=== PATIENT | male | born 1950 | race African-American/Black ===

== ENCOUNTER 2016-08-12 12:00 | Inpatient (IN) | payer OTHER ==
[2016-08-12 12:18] VITALS: BMI 27.1
--- NOTE | 2016-08-12 12:58 | HP ---
COWS - Scale Resting Pulse: 1= MD 81-100 Sweatin= No chills or Flushing Restless Observation: 1= Difficult to Sit Still Pupil Size: 0= Normal to Room Light Bone or Joint Aches: 1= Mild Discomfort Runny Nose/ Eye Tearin= Nasal Congestion GI Upset > 30mins: 1= Stomach Cramp Tremor Observation: 1= Tremor [place], Not Seen Yawning Observation: 1= 1-2x During Session Anxiety or Irritability: 1=Feels Anxious/Irritable Goose Flesh Skin: 0=Smooth Skin COWS Score: 8 Admission ROS S - HPI Chief Complaint: I want to detox, I have to stop Allergies/Adverse Reactions: Allergies Allergy/AdvReac Type Severity Reaction Status Date / Time fish derived Allergy Severe Swelling Verified 08/12/16 13:16 Iodinated Contrast Media - Allergy Severe Difficulty Verified 08/12/16 13:16 Oral and Breathing [Iodinated Contrast Media - IV Dye] penicillin G Allergy Severe Hives Verified 08/12/16 13:16 contrast dye Allergy Severe Difficulty Uncoded 08/12/16 13:16 Breathing History of Present Illness: 66 yo gentleman here for detox from opiates, previously detoxed her february 2016 - went on suboxone but due to emphysema had a difficult time getting there daily and stopped in May 2016. For same reason unable to continue with methadone program - difficulty getting there daily. No seizures. Exam Limitations: Clinical Condition - Ebola screening Have you traveled outside of the country in the last 21 days: No Have you had contact with anyone from an Ebola affected area: No Have you been sick,other than usual withdrawal symptoms: No Do you have a fever: No - Review of Systems Constitutional: Loss of Appetite, Changes in sleep, Unexplained wgt Loss Respiratory: reports: SOB with Exertion Cardiac: reports: No Symptoms Reported GI: reports: Nausea, Poor Appetite : reports: Dysuria Musculoskeletal: reports: No Symptoms Reported Integumentary: reports: No Symptoms Reported Neuro: reports: No Symptoms reported Endocrine: reports: No Symptoms Reported Hematology: reports: No Symptoms Reported Psychiatric: reports: Judgement Intact, Mood/Affect Appropiate, Orientated x3 Other Systems: Reviewed and Negative Patient History - Patient Medical History Hx Anemia: No Hx Asthma: No Hx Chronic Obstructive Pulmonary Disease (COPD): Yes Hx Cancer: No Hx Cardiac Disorders: No Hx Congestive Heart Failure: No Hx Hypertension: Yes (ON MEDS) Hx Hypercholesterolemia: No Hx Pacemaker: No HX Cerebrovascular Accident: No Hx Seizures: No Hx Diabetes: No Hx Gastrointestinal Disorders: No Hx Liver Disease: Yes (HEP B ) Hx Genitourinary Disorders: No Hx Sexually Transmitted Disorders: Yes (SYPHILIS years ago - treated) Hx Renal Disease (ESRD): Yes (HX KIDNEY STONES) Hx Thyroid Disease: No Hx Human Immunodeficiency Virus (HIV): No (LAST TESTED 03/2013;NEGATIVE HX) Hx Hepatitis C: No Hx Depression: Yes (NO CURRENT MEDICATION) Hx Suicide Attempt: No (DENIES) Hx Bipolar Disorder: No Hx Schizophrenia: No - Patient Surgical History Past Surgical History: Yes Hx Neurologic Surgery: No Hx Cataract Extraction: Yes (LEFT LENS TRANSPLANT IN 2011) Hx Cardiac Surgery: No Hx Lung Surgery: No Hx Breast Surgery: No Hx Breast Biopsy: No Hx Abdominal Surgery: No Hx Appendectomy: No Hx Cholecystectomy: No Hx Genitourinary Surgery: No Hx Section: No Hx Orthopedic Surgery: No Other Surgical History: lens implant, left eye in 2011 Anesthesia Reaction: No - PPD History Previous Implant?: Yes Documented Results: Positive w/o proof Results: CXR TO BE DONE PPD to be Administered?: No - Reproductive History Patient is a Female of Child Bearing Age (11 -55 yrs old): No (male) - Smoking Cessation Smoking history: Current every day smoker Have you smoked in the past 12 months: Yes Aproximately how many cigarettes per day: 5 Cigars Per Day: 0 Hx Chewing Tobacco Use: No Initiated information on smoking cessation: Yes 'Breaking Loose' booklet given: 08/12/16 (give on floor) - Substance & Tx. History Hx Alcohol Use: Yes Hx Substance Use: Yes Substance Use Type: Alcohol, Cocaine, Heroin, Opiates Hx Substance Use Treatment: Yes (detox, suboxone, methadone program) - Substances Abused Alcohol Route: Oral Frequency: Daily Amount used: 1/5 liquor Age of first use: 12 Date of Last Use: 08/12/16 Heroin Route: Injection Frequency: Daily Amount used: 3 bags Age of first use: 12 Date of Last Use: 08/12/16 Cocaine Route: Injection Frequency: 3-6 times per week Amount used: $20 Age of first use: 14 Date of Last Use: 08/08/16 Family Disease History - Family Disease History Family Disease History: Respiratory: Father (HTN;ASTHMA-), Other: Father , Mother (HTN-), Brother (, liver, etoh), Sister (, liver, etoh) Admission Physical Exam [facility] - Vital Signs Vital Signs: Vital Signs - 24 hr 08/12/16 12:11 Temperature 98.6 F Pulse Rate 112 H Respiratory 20 Rate Blood Pressure 136/91 - Physical General Appearance: Yes: Nourished, Appropriately Dressed, Mild Distress, Moderate Distress, Anxious HEENTM: Yes: Hearing grossly Normal, Normocephalic, Normal Voice, Pharynx Normal , Other (left eye wanders) Respiratory: Yes: Rhonchi, Other (dyspnea on exertion) Neck: Yes: No masses,lesions,Nodules, Supple Breast: Yes: Breast Exam Deferred Cardiology: Yes: Regular Rhythm, Regular Rate Abdominal: Yes: Soft Genitourinary: Yes: Within Normal Limits Back: Yes: Normal Inspection Musculoskeletal: Yes: full range of Motion, Gait Steady Extremities: Yes: Normal Inspection, Normal Range of Motion Neurological: Yes: Fully Oriented, Alert, Normal Mood/Affect, Normal Response Integumentary: Yes: Normal Color, Warm Lymphatic: Yes: Within Normal Limits - Diagnostic (1) Alcohol dependence with uncomplicated withdrawal Current Visit: Yes Status: Chronic (2) Emphysema Current Visit: Yes Status: Chronic (3) Glaucoma, left eye Current Visit: Yes Status: Chronic Qualifiers: Glaucoma type: unspecified type Qualified Code(s): H40.9 - Unspecified glaucoma (4) HTN (hypertension) Current Visit: Yes Status: Chronic Qualifiers: Hypertension type: essential hypertension Qualified Code(s): I10 - Essential (primary) hypertension (5) Hepatitis C Current Visit: Yes Status: Chronic Qualifiers: Viral hepatitis chronicity: carrier Qualified Code(s): B18.2 - Chronic viral hepatitis C (6) Opioid dependence with withdrawal Current Visit: Yes Status: Chronic (7) Strabismic amblyopia of left eye Current Visit: Yes Status: Chronic Cleared for Admission [facility] - Detox or Rehab [facility] Level of Care: Medically Managed Detox Regimen/Protocol: Methadone/Librium S Breath Alcohol Content Breath Alcohol Content: 0 Urine Drug Screen - Results Drug Screen Negative: No Urine Drug Screen Results: NATALIA-Cocaine, OPI-Opiates, OXY-Oxycodone
[2016-08-12] MEDS ORDERED: LOPERAMIDE HCL 2 MG CAPSULE PO PRN (13:09)
[2016-08-12] MEDS ORDERED: P-EPHED 60MG/TRIPROLIDI 2.5MG TABLET PO PRN (13:09)
[2016-08-12] MEDS ORDERED: ACETAMINOPHEN 325 MG TABLET (FP) PO PRN (13:09)
[2016-08-12] MEDS ORDERED: hydrOXYzine PAMOATE 25 MG CAPSULE (FP) PO PRN (13:09)
[2016-08-12] MEDS ORDERED: MAG HYDROX/AL HYDROX/SIMETH 30 ML UNIT-DOSE CUP PO PRN (13:09)
[2016-08-12] MEDS ORDERED: chlordiazePOXIDE HCL 25 MG CAPSULE PO PRN (13:09)
[2016-08-12] MEDS ORDERED: METHADONE HCL 10 MG TABLET (FOR DETOX USE ONLY) PO ONE ×2 (13:09→23:00)
[2016-08-12] MEDS ORDERED: MENTHOL/PHENOL 1 EACH UD MM PRN (13:09)
[2016-08-12] MEDS ORDERED: guaiFENesin/D-METHORPHAN HB 10 ML UNIT-DOSE CUPS PO PRN (13:09)
[2016-08-12] MEDS ORDERED: MAGNESIUM HYDROX 2400MG/30ML ORAL SUSPENSION 30 ML CUP PO PRN (13:09)
[2016-08-12] MEDS ORDERED: MAGNESIUM CITRATE 300 ML BOTTLE PO PRN (13:09)
[2016-08-12] MEDS: ALBUTEROL SO4 2.5/IPRATROPIUM 0.5 INH SOL 3 ML VIAL.NEB. NEB PRN (14:53)
[2016-08-12] MEDS ORDERED: chlordiazePOXIDE HCL 25 MG CAPSULE PO ONE (15:00)
[2016-08-12] MEDS: NICOTINE 14 MG/24 HOURS TOPICAL PATCH TD SCH (15:34)
[2016-08-12] MEDS: chlordiazePOXIDE HCL 25 MG CAPSULE PO SCH ×2 (17:39→22:02)
[2016-08-12 18:34] LABS: URINE APPEARANCE CLEAR; URINE BILIRUBIN NEGATIVE (NEGATIVE); URINE BLOOD NEGATIVE (NEGATIVE); URINE COLOR YELLOW; URINE GLUCOSE (UA) NEGATIVE (NEGATIVE); URINE KETONE NEGATIVE (NEGATIVE); URINE LEUK ESTERASE NEGATIVE (NEGATIVE); URINE NITRITE NEGATIVE (NEGATIVE); URINE PROTEIN NEGATIVE (NEGATIVE); URINE UROBILINOGEN NEGATIVE E.U./dl (0.2-1.0)
[2016-08-12] MEDS ORDERED: ATORVASTATIN CA 40 MG TABLET (FP) ONE (20:38)
[2016-08-12] MEDS: THIAMINE HCL 100 MG TABLET (FP) PO SCH (22:01)
[2016-08-12] MEDS: ACLIDINIUM BROMIDE 400 MCG/INH AERO.POWD IH SCH (22:03)
[2016-08-12] MEDS: BUDESONIDE/FORMETEROL FUMARATE 160/4.5 mcg INHALER IH SCH (22:03)
[2016-08-12] MEDS: ATORVASTATIN CA 80 MG TABLET (FP) PO SCH (22:03)
[2016-08-12] MEDS: BRIMONIDINE TARTRATE 0.2% OPHTHALMIC 5 ML BOTTLE OS SCH (22:05)
[2016-08-12] MEDS: ALBUTEROL SO4 6.7 GM HFA INHALER IH PRN (22:06)
[2016-08-13] MEDS: chlordiazePOXIDE HCL 25 MG CAPSULE PO SCH ×4 (05:49→22:35)
[2016-08-13] MEDS: ALBUTEROL SO4 6.7 GM HFA INHALER IH PRN ×2 (08:16→19:22)
[2016-08-13 09:18] LABS: MCH 29.2 pg (25.7-33.7); MCHC 31.8 g/dl (32.0-35.9); MEAN CELL VOLUME 91.8 fl (80-96); MEAN PLT VOLUME 9.3 fl (7.5-11.1); PLATELET COUNT 170 K/MM3 (134-434); RDW 14.6 % (11.9-15.9); WHITE BLOOD COUNT 3.9 K/mm3 (4.0-10.0)
[2016-08-13 09:30] LABS: ALBUMIN 3.1 g/dl (3.4-5.0); ANION GAP 8 (8-16); CALCIUM 8.1 mg/dL (8.5-10.1); CO2 27 mmol/L (21-32); GLUCOSE,RANDOM 86 mg/dL (74-106)
[2016-08-13 09:33] LABS: ALK PHOS 86 U/L (45-117); BILIRUBIN,TOTAL 0.4 mg/dL (0.2-1.0); COCKROFT - GAULT 85.84; CREATININE 0.9 mg/dL (0.7-1.3); SGOT/AST 34 U/L (15-37); SGPT/ALT 38 U/L (12-78); TOT PROT 6.7 g/dl (6.4-8.2)
[2016-08-13] MEDS ORDERED: METHADONE HCL 10 MG TABLET (FOR DETOX USE ONLY) PO SCH (10:00)
[2016-08-13] MEDS: BUDESONIDE/FORMETEROL FUMARATE 160/4.5 mcg INHALER IH SCH ×2 (10:17→22:35)
[2016-08-13] MEDS: BRIMONIDINE TARTRATE 0.2% OPHTHALMIC 5 ML BOTTLE OS SCH ×2 (10:18→22:37)
[2016-08-13] MEDS: ACLIDINIUM BROMIDE 400 MCG/INH AERO.POWD IH SCH ×2 (10:18→22:35)
[2016-08-13] MEDS: PRENATAL VITAMINS W/ FOLIC ACID TABLET (FP) PO SCH (10:19)
[2016-08-13] MEDS: amLODIPine BESYLATE 10 MG TABLET (FP) PO SCH (10:19)
[2016-08-13] MEDS: NICOTINE 14 MG/24 HOURS TOPICAL PATCH TD SCH (10:19)
[2016-08-13] MEDS: ASPIRIN 81 MG CHEWABLE TABLETS PO SCH (10:19)
--- NOTE | 2016-08-13 14:04 | PN ---
S CIWA - CIWA Score Nausea/Vomitin-No Nausea/No Vomiting Muscle Tremors: 4-Moderate,w/Arms Extend Anxiety: 4-Mod. Anxious/Guarded Agitation: 3 Paroxysmal Sweats: 3 Orientation: 0-Oriented Tacttile Disturbances: 1-Very Mild Itch/Numbness Auditory Disturbances: 0-None Visual Disturbances: 0-None Headache: 0-None Present CIWA-Ar Total Score: 15 [facility] Progress Note (SOAP) Subjective: Anxiety,tremors,sweating,interrupted sleep,restless. Objective: 08/13/16 14:02 Vital Signs - 8 hr 08/13/16 08/13/16 08/13/16 06:35 07:00 09:46 Temperature 97.7 F 97.7 F Pulse Rate 86 83 90 Respiratory 18 20 Rate Blood Pressure 164/108 152/100 164/92 08/13/16 13:42 Temperature 97.3 F L Pulse Rate 96 H Respiratory 18 Rate Blood Pressure 159/101 Laboratory Tests 08/12/16 08/13/16 08/13/16 18:10 07:30 07:30 WBC 3.9 L RBC 4.98 Hgb 14.5 Hct 45.7 MCV 91.8 MCHC 31.8 L RDW 14.6 Plt Count 170 MPV 9.3 Sodium 142 Potassium 4.1 Chloride 107 Carbon Dioxide 27 Anion Gap 8 BUN 10 Creatinine 0.9 Creat Clearance w eGFR > 60 Random Glucose 86 Calcium 8.1 L Total Bilirubin 0.4 AST 34 D ALT 38 Alkaline Phosphatase 86 D Total Protein 6.7 Albumin 3.1 L D Urine Color Yellow Urine Appearance Clear Urine pH 5.0 Ur Specific [place] 1.019 Urine Protein Negative Urine Glucose (UA) Negative Urine Ketones Negative Urine Blood Negative Urine Nitrite Negative Urine Bilirubin Negative Urine Urobilinogen Negative Ur Leukocyte Esterase Negative RPR Titer 08/13/16 07:30 WBC RBC Hgb Hct MCV MCHC RDW Plt Count MPV Sodium Potassium Chloride Carbon Dioxide Anion Gap BUN Creatinine Creat Clearance w eGFR Random Glucose Calcium Total Bilirubin AST ALT Alkaline Phosphatase Total Protein Albumin Urine Color Urine Appearance Urine pH Ur Specific [place] Urine Protein Urine Glucose (UA) Urine Ketones Urine Blood Urine Nitrite Urine Bilirubin Urine Urobilinogen Ur Leukocyte Esterase RPR Titer Nonreactive labs noted Assessment: 08/13/16 14:03 Withdrawal sx. Plan: Continue detox
[2016-08-13 16:15] LABS: PLATELET COMMENT2 NO CLUMPING NOTED; PLATELET ESTIMATE ADEQUATE (NORMAL)
--- NOTE | 2016-08-13 17:18 | EKG ---
Test Reason : Blood Pressure : / mmHG Vent. Rate : 095 BPM Atrial Rate : 095 BPM P-R Int : 132 ms QRS Dur : 088 ms QT Int : 356 ms P-R-T Axes : 077 -17 026 degrees QTc Int : 447 ms NORMAL SINUS RHYTHM NORMAL ECG NO PREVIOUS ECGS AVAILABLE Confirmed by ELYSSA PEREZ MD ([id number]) on 08/13/2016 5:17:36 PM Referred By: Confirmed By:ELYSSA PEREZ MD
[2016-08-13] MEDS ORDERED: ATORVASTATIN CA 40 MG TABLET (FP) ONE (21:27)
[2016-08-13] MEDS: ATORVASTATIN CA 80 MG TABLET (FP) PO SCH (22:35)
[2016-08-13] MEDS: THIAMINE HCL 100 MG TABLET (FP) PO SCH (22:35)
[2016-08-13] MEDS: diphenhydrAMINE HCL 50 MG CAPSULE PO PRN (22:36)
[2016-08-14] MEDS: chlordiazePOXIDE HCL 25 MG CAPSULE PO SCH ×2 (05:57→10:53)
[2016-08-14] MEDS: ALBUTEROL SO4 2.5/IPRATROPIUM 0.5 INH SOL 3 ML VIAL.NEB. NEB PRN (09:25)
[2016-08-14] MEDS: ASPIRIN 81 MG CHEWABLE TABLETS PO SCH (10:51)
[2016-08-14] MEDS: BRIMONIDINE TARTRATE 0.2% OPHTHALMIC 5 ML BOTTLE OS SCH ×2 (10:51→22:32)
[2016-08-14] MEDS: BUDESONIDE/FORMETEROL FUMARATE 160/4.5 mcg INHALER IH SCH ×2 (10:51→22:31)
[2016-08-14] MEDS: PRENATAL VITAMINS W/ FOLIC ACID TABLET (FP) PO SCH (10:52)
[2016-08-14] MEDS: ACLIDINIUM BROMIDE 400 MCG/INH AERO.POWD IH SCH ×2 (10:52→22:32)
[2016-08-14] MEDS: amLODIPine BESYLATE 10 MG TABLET (FP) PO SCH (10:52)
[2016-08-14] MEDS: METHADONE HCL 5 MG TABLET (FOR DETOX USE ONLY) PO SCH (10:52)
[2016-08-14] MEDS: NICOTINE 14 MG/24 HOURS TOPICAL PATCH TD SCH (10:53)
--- NOTE | 2016-08-14 11:32 | CONSULT ---
[facility] Psychiatric Consult - Data Date of interview: 08/14/16 Admission source: [facility] Identifying data: This is 66 years old male with no psychiatric hospitalization history intoxicated with: Alcohol, Cocaine, Heroin and Nicotine Substance Abuse History: - Smoking Cessation. Smoking history: Current every day smoker. Have you smoked in the past 12 months: Yes. Aproximately how many cigarettes per day: 5. Cigars Per Day: 0. Hx Chewing Tobacco Use: No. Initiated information on smoking cessation: Yes. 'Breaking Loose' booklet given : 08/12/16 (give on floor). - Substance & Tx. History. Hx Alcohol Use: Yes. Hx Substance Use: Yes. Substance Use Type: Alcohol, Cocaine, Heroin, Opiates. Hx Substance Use Treatment: Yes (detox, suboxone, methadone program). - Substances Abused. Alcohol. Route: Oral. Frequency: Daily. Amount used: 1 /5 liquor. Age of first use: 12. Date of Last Use: 08/12/16. Heroin. Route: Injection. Frequency: Daily. Amount used: 3 bags. Age of first use: 12. Date of Last Use: 08/12/16. Cocaine. Route: Injection. Frequency: 3- 6 times per week. Amount used: $20. Age of first use: 14. Date of Last Use: 08/08/16 Medical History: Left eye blindness, Emphisema, HTN, Left eye glaucoma, Asthma history Psychiatric History: Patient reprots history of depression, as per computer there is a history of MDD, as per patient - no medications taking prior to admission, denies suicidal history Physical/Sexual Abuse/Trauma History: Denies Additional Comment: Obswervation. Detox Unit Care Protocol Mental Status Exam - Mental Status Exam Alert and Oriented to: Person Cognitive Function: Fair Patient Appearance: Unkempt Mood: Sad Affect: Mood Congruent Patient Behavior: Sedated Speech Pattern: Delayed Voice Loudness: Mildly Soft/Quiet Thought Process: Goal Oriented Thought Disorder: Being Controlled Hallucinations: Denies Suicidal Ideation: Denies Homicidal Ideation: Denies Insight/Judgement: Fair Sleep: Difficulty falling asleep Appetite: Fair Muscle strength/Tone: Mild Hypotonicity Gait/Station: Shuffling Additional Comments: Obswervation. Detox Unit Care Protocol Psychiatric Findings - Problem List ([place] 1, 2,3) (1) Alcohol dependence with uncomplicated withdrawal Current Visit: Yes Status: Chronic (2) Opioid dependence with withdrawal Current Visit: Yes Status: Chronic (3) Depressive disorder Current Visit: No Status: Chronic (4) Drug-induced mood disorder Current Visit: No Status: Chronic (5) Nicotine dependence Current Visit: No Status: Chronic Qualifiers: Nicotine product type: cigarettes Substance use status: uncomplicated Qualified Code(s): F17.210 - Nicotine dependence, cigarettes, uncomplicated (6) Opioid dependence Current Visit: No Status: Chronic (7) MDD (major depressive disorder) Current Visit: Yes Status: Acute - Initial Treatment Plan Initial Treatment Plan: Obswervation. Detox Unit Care Protocol
--- NOTE | 2016-08-14 13:37 | PN ---
[facility] CIWA - CIWA Score Nausea/Vomitin-No Nausea/No Vomiting Muscle Tremors: 4-Moderate,w/Arms Extend Anxiety: 3 Agitation: 3 Paroxysmal Sweats: 3 Orientation: 0-Oriented Tacttile Disturbances: 1-Very Mild Itch/Numbness Auditory Disturbances: 0-None Visual Disturbances: 0-None Headache: 0-None Present CIWA-Ar Total Score: 14 S COWS - Scale Resting Pulse: 1= SD 81-100 Sweatin=Flushed/Facial Moisture Restless Observation: 1= Difficult to Sit Still Pupil Size: 0= Normal to Room Light Bone or Joint Aches: 2= Severe Diffuse Aches Runny Nose/ Eye Tearin= Runny Nose/Eyes GI Upset > 30mins: 2= Nausea/Diarrhea Tremor Observation of Outstretched Hands: 2= Slight Tremor Visible Yawning Observation: 1= 1-2x During Session Anxiety or Irritability: 2=Irritable/Anxious Goose Flesh Skin: 0=Smooth Skin COWS Score: 15 [facility] Progress Note (SOAP) Subjective: Sweating,anxiety,tremors,interrupted sleep,restless,muscle aches Objective: 08/14/16 13:35 Vital Signs - 8 hr 08/14/16 08/14/16 07:54 09:53 Temperature 96.2 F L Pulse Rate 99 H 96 H Respiratory 20 Rate Blood Pressure 158/101 148/105 Laboratory Tests 08/12/16 08/13/16 08/13/16 18:10 07:30 07:30 WBC 3.9 L RBC 4.98 Hgb 14.5 Hct 45.7 MCV 91.8 MCHC 31.8 L RDW 14.6 Plt Count 170 MPV 9.3 Neutrophils % 30.0 L Lymphocytes % 46.0 H Monocytes % 12.0 H Eosinophils % 8.0 H Band Neutrophils 1.0 Reactive Lymphocytes 3 Platelet Estimate Adequate Platelet Comment No clumping noted Sodium 142 Potassium 4.1 Chloride 107 Carbon Dioxide 27 Anion Gap 8 BUN 10 Creatinine 0.9 Creat Clearance w eGFR > 60 Random Glucose 86 Calcium 8.1 L Total Bilirubin 0.4 AST 34 D ALT 38 Alkaline Phosphatase 86 D Total Protein 6.7 Albumin 3.1 L D Urine Color Yellow Urine Appearance Clear Urine pH 5.0 Ur Specific [place] 1.019 Urine Protein Negative Urine Glucose (UA) Negative Urine Ketones Negative Urine Blood Negative Urine Nitrite Negative Urine Bilirubin Negative Urine Urobilinogen Negative Ur Leukocyte Esterase Negative RPR Titer 08/13/16 07:30 WBC RBC Hgb Hct MCV MCHC RDW Plt Count MPV Neutrophils % Lymphocytes % Monocytes % Eosinophils % Band Neutrophils Reactive Lymphocytes Platelet Estimate Platelet Comment Sodium Potassium Chloride Carbon Dioxide Anion Gap BUN Creatinine Creat Clearance w eGFR Random Glucose Calcium Total Bilirubin AST ALT Alkaline Phosphatase Total Protein Albumin Urine Color Urine Appearance Urine pH Ur Specific [place] Urine Protein Urine Glucose (UA) Urine Ketones Urine Blood Urine Nitrite Urine Bilirubin Urine Urobilinogen Ur Leukocyte Esterase RPR Titer Nonreactive labs noted Assessment: 08/14/16 13:36 Withdrawal sx. Plan: Continue detox
[2016-08-14] MEDS: chlordiazePOXIDE 5 MG CAPSULE PO SCH ×2 (17:17→22:33)
[2016-08-14] MEDS: THIAMINE HCL 100 MG TABLET (FP) PO SCH (22:31)
[2016-08-14] MEDS: ATORVASTATIN CA 40 MG TABLET (FP) PO SCH (22:33)
[2016-08-15] MEDS: chlordiazePOXIDE 5 MG CAPSULE PO SCH ×2 (05:40→10:34)
--- NOTE | 2016-08-15 10:22 | PN ---
S Progress Note (SOAP) Subjective: Sweating,interrupted sleep,restless Objective: 08/15/16 10:19 Vital Signs - 8 hr 08/15/16 08/15/16 08/15/16 03:30 06:48 09:57 Temperature 98.1 F 96.3 F L Pulse Rate 94 H 101 H Respiratory 18 18 20 Rate Blood Pressure 137/93 137/88 Laboratory Last Values WBC 3.9 K/mm3 (4.0-10.0) L 08/13/16 07:30 RBC 4.98 M/mm3 (4.00-5.60) 08/13/16 07:30 Hgb 14.5 GM/dL (11.7-16.9) 08/13/16 07:30 Hct 45.7 % (35.4-49) 08/13/16 07:30 MCV 91.8 fl (80-96) 08/13/16 07:30 MCHC 31.8 g/dl (32.0-35.9) L 08/13/16 07:30 RDW 14.6 % (11.9-15.9) 08/13/16 07:30 Plt Count 170 K/MM3 (134-434) 08/13/16 07:30 MPV 9.3 fl (7.5-11.1) 08/13/16 07:30 Neutrophils % 30.0 % (42.8-82.8) L 08/13/16 07:30 Lymphocytes % 46.0 % (8-40) H 08/13/16 07:30 Monocytes % 12.0 % (3.8-10.2) H 08/13/16 07:30 Eosinophils % 8.0 % (0-4.5) H 08/13/16 07:30 Band Neutrophils 1.0 % (0-10) 08/13/16 07:30 Reactive Lymphocytes 3 % (0-80) 08/13/16 07:30 Platelet Estimate Adequate (NORMAL) 08/13/16 07:30 Platelet Comment Rare giant plts 08/13/16 07:30 Platelet Comment No clumping noted 08/13/16 07:30 Sodium 142 mmol/L (136-145) 08/13/16 07:30 Potassium 4.1 mmol/L (3.5-5.1) 08/13/16 07:30 Chloride 107 mmol/L (98-107) 08/13/16 07:30 Carbon Dioxide 27 mmol/L (21-32) 08/13/16 07:30 Anion Gap 8 (8-16) 08/13/16 07:30 BUN 10 mg/dL (7-18) 08/13/16 07:30 Creatinine 0.9 mg/dL (0.7-1.3) 08/13/16 07:30 Creat Clearance w eGFR > 60 (>60) 08/13/16 07:30 Random Glucose 86 mg/dL (74-106) 08/13/16 07:30 Calcium 8.1 mg/dL (8.5-10.1) L 08/13/16 07:30 Total Bilirubin 0.4 mg/dL (0.2-1.0) 08/13/16 07:30 AST 34 U/L (15-37) D 08/13/16 07:30 ALT 38 U/L (12-78) 08/13/16 07:30 Alkaline Phosphatase 86 U/L (45-117) D 08/13/16 07:30 Total Protein 6.7 g/dl (6.4-8.2) 08/13/16 07:30 Albumin 3.1 g/dl (3.4-5.0) L D 08/13/16 07:30 Urine Color Yellow 08/12/16 18:10 Urine Appearance Clear 08/12/16 18:10 Urine pH 5.0 (5.0-8.0) 08/12/16 18:10 Ur Specific [place] 1.019 (1.001-1.035) 08/12/16 18:10 Urine Protein Negative (NEGATIVE) 08/12/16 18:10 Urine Glucose (UA) Negative (NEGATIVE) 08/12/16 18:10 Urine Ketones Negative (NEGATIVE) 08/12/16 18:10 Urine Blood Negative (NEGATIVE) 08/12/16 18:10 Urine Nitrite Negative (NEGATIVE) 08/12/16 18:10 Urine Bilirubin Negative (NEGATIVE) 08/12/16 18:10 Urine Urobilinogen Negative E.U./dl (0.2-1.0) 08/12/16 18:10 Ur Leukocyte Esterase Negative (NEGATIVE) 08/12/16 18:10 RPR Titer Nonreactive (NONREACTIVE) 08/13/16 07:30 labs noted Assessment: 08/15/16 10:20 Withdrawal sx. Plan: Continue detox
[2016-08-15] MEDS: PRENATAL VITAMINS W/ FOLIC ACID TABLET (FP) PO SCH (10:33)
[2016-08-15] MEDS: BRIMONIDINE TARTRATE 0.2% OPHTHALMIC 5 ML BOTTLE OS SCH ×2 (10:33→22:37)
[2016-08-15] MEDS: ASPIRIN 81 MG CHEWABLE TABLETS PO SCH (10:34)
[2016-08-15] MEDS: amLODIPine BESYLATE 10 MG TABLET (FP) PO SCH (10:34)
[2016-08-15] MEDS: METHADONE HCL 5 MG TABLET (FOR DETOX USE ONLY) PO SCH (10:34)
[2016-08-15] MEDS: NICOTINE 14 MG/24 HOURS TOPICAL PATCH TD SCH (10:35)
[2016-08-15] MEDS: BUDESONIDE/FORMETEROL FUMARATE 160/4.5 mcg INHALER IH SCH ×2 (10:35→22:38)
[2016-08-15] MEDS: ACLIDINIUM BROMIDE 400 MCG/INH AERO.POWD IH SCH ×2 (10:35→22:38)
[2016-08-15] MEDS: ALBUTEROL SO4 6.7 GM HFA INHALER IH PRN (13:23)
[2016-08-15] MEDS: chlordiazePOXIDE HCL 10 MG CAPSULE PO SCH ×2 (17:17→22:37)
[2016-08-15] MEDS: ATORVASTATIN CA 40 MG TABLET (FP) PO SCH (22:37)
[2016-08-15] MEDS: THIAMINE HCL 100 MG TABLET (FP) PO SCH (22:38)
[2016-08-15] MEDS: diphenhydrAMINE HCL 50 MG CAPSULE PO PRN (22:39)
[2016-08-16] MEDS: ALBUTEROL SO4 6.7 GM HFA INHALER IH PRN (05:58)
[2016-08-16] MEDS: chlordiazePOXIDE HCL 10 MG CAPSULE PO SCH ×2 (05:58→10:28)
[2016-08-16] MEDS: ALBUTEROL SO4 2.5/IPRATROPIUM 0.5 INH SOL 3 ML VIAL.NEB. NEB PRN ×2 (06:05→12:24)
[2016-08-16] MEDS ORDERED: METHADONE HCL 10 MG TABLET (FOR DETOX USE ONLY) PO SCH (10:00)
[2016-08-16] MEDS: PRENATAL VITAMINS W/ FOLIC ACID TABLET (FP) PO SCH (10:28)
[2016-08-16] MEDS: BRIMONIDINE TARTRATE 0.2% OPHTHALMIC 5 ML BOTTLE OS SCH ×2 (10:29→22:41)
[2016-08-16] MEDS: NICOTINE 14 MG/24 HOURS TOPICAL PATCH TD SCH (10:29)
[2016-08-16] MEDS: ASPIRIN 81 MG CHEWABLE TABLETS PO SCH (10:29)
[2016-08-16] MEDS: amLODIPine BESYLATE 10 MG TABLET (FP) PO SCH (10:29)
[2016-08-16] MEDS: BUDESONIDE/FORMETEROL FUMARATE 160/4.5 mcg INHALER IH SCH ×2 (10:30→22:39)
[2016-08-16] MEDS: ACLIDINIUM BROMIDE 400 MCG/INH AERO.POWD IH SCH ×2 (10:30→22:39)
--- NOTE | 2016-08-16 12:45 | PN ---
S Progress Note Note: PT STATES HX REFLUX AND NEXIUM IN THE PAST. PROTONIX DIRECTED.
[2016-08-16] MEDS: PANTOPRAZOLE 40 MG TABLET (FP) PO SCH (13:33)
[2016-08-16] MEDS: ATORVASTATIN CA 40 MG TABLET (FP) PO SCH (22:39)
[2016-08-16] MEDS: diphenhydrAMINE HCL 50 MG CAPSULE PO PRN (22:40)
[2016-08-16] MEDS: THIAMINE HCL 100 MG TABLET (FP) PO SCH (22:41)
--- NOTE | 2016-08-16 23:03 | PN ---
S Progress Note (SOAP) Subjective: anxiety sweats fatigue dyspepsia Objective: 08/16/16 23:00 Vital Signs - 24 hr 08/16/16 08/16/16 08/16/16 03:32 06:37 09:53 Temperature 96.8 F L 95.9 F L Pulse Rate 88 95 H Respiratory 18 18 18 Rate Blood Pressure 145/99 132/85 08/16/16 08/16/16 08/16/16 13:49 17:46 22:39 Temperature 96.9 F L 97.5 F L 97.1 F L Pulse Rate 99 H 94 H 91 H Respiratory 20 18 18 Rate Blood Pressure 152/94 140/83 130/92 Laboratory Last Values WBC 3.9 K/mm3 (4.0-10.0) L 08/13/16 07:30 RBC 4.98 M/mm3 (4.00-5.60) 08/13/16 07:30 Hgb 14.5 GM/dL (11.7-16.9) 08/13/16 07:30 Hct 45.7 % (35.4-49) 08/13/16 07:30 MCV 91.8 fl (80-96) 08/13/16 07:30 MCHC 31.8 g/dl (32.0-35.9) L 08/13/16 07:30 RDW 14.6 % (11.9-15.9) 08/13/16 07:30 Plt Count 170 K/MM3 (134-434) 08/13/16 07:30 MPV 9.3 fl (7.5-11.1) 08/13/16 07:30 Neutrophils % 30.0 % (42.8-82.8) L 08/13/16 07:30 Lymphocytes % 46.0 % (8-40) H 08/13/16 07:30 Monocytes % 12.0 % (3.8-10.2) H 08/13/16 07:30 Eosinophils % 8.0 % (0-4.5) H 08/13/16 07:30 Band Neutrophils 1.0 % (0-10) 08/13/16 07:30 Reactive Lymphocytes 3 % (0-80) 08/13/16 07:30 Platelet Estimate Adequate (NORMAL) 08/13/16 07:30 Platelet Comment Rare giant plts 08/13/16 07:30 Platelet Comment No clumping noted 08/13/16 07:30 Sodium 142 mmol/L (136-145) 08/13/16 07:30 Potassium 4.1 mmol/L (3.5-5.1) 08/13/16 07:30 Chloride 107 mmol/L (98-107) 08/13/16 07:30 Carbon Dioxide 27 mmol/L (21-32) 08/13/16 07:30 Anion Gap 8 (8-16) 08/13/16 07:30 BUN 10 mg/dL (7-18) 08/13/16 07:30 Creatinine 0.9 mg/dL (0.7-1.3) 08/13/16 07:30 Creat Clearance w eGFR > 60 (>60) 08/13/16 07:30 Random Glucose 86 mg/dL (74-106) 08/13/16 07:30 Calcium 8.1 mg/dL (8.5-10.1) L 08/13/16 07:30 Total Bilirubin 0.4 mg/dL (0.2-1.0) 08/13/16 07:30 AST 34 U/L (15-37) D 08/13/16 07:30 ALT 38 U/L (12-78) 08/13/16 07:30 Alkaline Phosphatase 86 U/L (45-117) D 08/13/16 07:30 Total Protein 6.7 g/dl (6.4-8.2) 08/13/16 07:30 Albumin 3.1 g/dl (3.4-5.0) L D 08/13/16 07:30 Urine Color Yellow 08/12/16 18:10 Urine Appearance Clear 08/12/16 18:10 Urine pH 5.0 (5.0-8.0) 08/12/16 18:10 Ur Specific [place] 1.019 (1.001-1.035) 08/12/16 18:10 Urine Protein Negative (NEGATIVE) 08/12/16 18:10 Urine Glucose (UA) Negative (NEGATIVE) 08/12/16 18:10 Urine Ketones Negative (NEGATIVE) 08/12/16 18:10 Urine Blood Negative (NEGATIVE) 08/12/16 18:10 Urine Nitrite Negative (NEGATIVE) 08/12/16 18:10 Urine Bilirubin Negative (NEGATIVE) 08/12/16 18:10 Urine Urobilinogen Negative E.U./dl (0.2-1.0) 08/12/16 18:10 Ur Leukocyte Esterase Negative (NEGATIVE) 08/12/16 18:10 RPR Titer Nonreactive (NONREACTIVE) 08/13/16 07:30 Assessment: 08/16/16 23:01 withdrawal sx Plan: continue detox protonix as directed
[2016-08-17] MEDS ORDERED: METHADONE HCL 5 MG TABLET (FOR DETOX USE ONLY) PO SCH (06:00)
--- NOTE | 2016-08-17 08:59 | DS ---
[facility] Detox Discharge Summary Admission Date: 08/12/16 Discharge Date: 08/17/16 - History Present History: Alcohol Dependence, Opioid Dependence Pertinent Past History: HTN Glaucoma HTN - Physical Exam Results Vital Signs: Vital Signs Temperature 97.1 F L 08/17/16 06:30 Pulse Rate 87 08/17/16 06:30 Respiratory Rate 18 08/17/16 06:30 Blood Pressure 145/96 08/17/16 06:30 O2 Sat by Pulse Oximetry (%) Pertinent Admission Physical Exam Findings: Withdrawal sx. Laboratory Last Values WBC 3.9 K/mm3 (4.0-10.0) L 08/13/16 07:30 RBC 4.98 M/mm3 (4.00-5.60) 08/13/16 07:30 Hgb 14.5 GM/dL (11.7-16.9) 08/13/16 07:30 Hct 45.7 % (35.4-49) 08/13/16 07:30 MCV 91.8 fl (80-96) 08/13/16 07:30 MCHC 31.8 g/dl (32.0-35.9) L 08/13/16 07:30 RDW 14.6 % (11.9-15.9) 08/13/16 07:30 Plt Count 170 K/MM3 (134-434) 08/13/16 07:30 MPV 9.3 fl (7.5-11.1) 08/13/16 07:30 Neutrophils % 30.0 % (42.8-82.8) L 08/13/16 07:30 Lymphocytes % 46.0 % (8-40) H 08/13/16 07:30 Monocytes % 12.0 % (3.8-10.2) H 08/13/16 07:30 Eosinophils % 8.0 % (0-4.5) H 08/13/16 07:30 Band Neutrophils 1.0 % (0-10) 08/13/16 07:30 Reactive Lymphocytes 3 % (0-80) 08/13/16 07:30 Platelet Estimate Adequate (NORMAL) 08/13/16 07:30 Platelet Comment Rare giant plts 08/13/16 07:30 Platelet Comment No clumping noted 08/13/16 07:30 Sodium 142 mmol/L (136-145) 08/13/16 07:30 Potassium 4.1 mmol/L (3.5-5.1) 08/13/16 07:30 Chloride 107 mmol/L (98-107) 08/13/16 07:30 Carbon Dioxide 27 mmol/L (21-32) 08/13/16 07:30 Anion Gap 8 (8-16) 08/13/16 07:30 BUN 10 mg/dL (7-18) 08/13/16 07:30 Creatinine 0.9 mg/dL (0.7-1.3) 08/13/16 07:30 Creat Clearance w eGFR > 60 (>60) 08/13/16 07:30 Random Glucose 86 mg/dL (74-106) 08/13/16 07:30 Calcium 8.1 mg/dL (8.5-10.1) L 08/13/16 07:30 Total Bilirubin 0.4 mg/dL (0.2-1.0) 08/13/16 07:30 AST 34 U/L (15-37) D 08/13/16 07:30 ALT 38 U/L (12-78) 08/13/16 07:30 Alkaline Phosphatase 86 U/L (45-117) D 08/13/16 07:30 Total Protein 6.7 g/dl (6.4-8.2) 08/13/16 07:30 Albumin 3.1 g/dl (3.4-5.0) L D 08/13/16 07:30 Urine Color Yellow 08/12/16 18:10 Urine Appearance Clear 08/12/16 18:10 Urine pH 5.0 (5.0-8.0) 08/12/16 18:10 Ur Specific [place] 1.019 (1.001-1.035) 08/12/16 18:10 Urine Protein Negative (NEGATIVE) 08/12/16 18:10 Urine Glucose (UA) Negative (NEGATIVE) 08/12/16 18:10 Urine Ketones Negative (NEGATIVE) 08/12/16 18:10 Urine Blood Negative (NEGATIVE) 08/12/16 18:10 Urine Nitrite Negative (NEGATIVE) 08/12/16 18:10 Urine Bilirubin Negative (NEGATIVE) 08/12/16 18:10 Urine Urobilinogen Negative E.U./dl (0.2-1.0) 08/12/16 18:10 Ur Leukocyte Esterase Negative (NEGATIVE) 08/12/16 18:10 RPR Titer Nonreactive (NONREACTIVE) 08/13/16 07:30 labs noted - Treatment Hospital Course: Detox Protocol Followed, Detoxed Safely, Responded well, Discharged Condition Good, Rehab Referral Accepted Patient has Accepted a Rehab Referral to: [facility] - Medication Discharge Medications: Ambulatory Orders Albuterol Sulfate Inhaler - [Ventolin HFA Inhaler -] 2 inh PO Q4H PRN #1 inh 03/22 Tiotropium [place] [Spiriva] 1 inh PO DAILY #1 inh 02/15/16 Amlodipine Besylate [Norvasc -] 10 mg PO DAILY #30 tablet 08/17/16 Aspirin [ASA -] 81 mg PO DAILY #30 tab.chew 08/17/16 Atorvastatin Ca [Lipitor] 20 mg PO HS #30 tablet 08/17/16 Brimonidine Tartrate [Alphagan 0.2% -] 1 drop OP BID 30 Days 08/17/16 Salmeterol/Fluticasone [Advair 500Mcg/50Mcg -] 1 inh PO BID #1 inh 08/17/16 - Diagnosis (1) GERD (gastroesophageal reflux disease) Current Visit: Yes Status: Acute Qualifiers: Esophagitis presence: without esophagitis Qualified Code(s): K21.9 - Gastro-esophageal reflux disease without esophagitis (2) MDD (major depressive disorder) Current Visit: Yes Status: Acute (3) Emphysema Current Visit: Yes Status: Chronic (4) Glaucoma, left eye Current Visit: Yes Status: Chronic Qualifiers: Glaucoma type: unspecified type Qualified Code(s): H40.9 - Unspecified glaucoma (5) HTN (hypertension) Current Visit: Yes Status: Chronic Qualifiers: Hypertension type: essential hypertension Qualified Code(s): I10 - Essential (primary) hypertension (6) Hepatitis C Current Visit: Yes Status: Chronic Qualifiers: Viral hepatitis chronicity: carrier Qualified Code(s): B18.2 - Chronic viral hepatitis C (7) Opioid dependence with withdrawal Current Visit: Yes Status: Chronic (8) Strabismic amblyopia of left eye Current Visit: Yes Status: Chronic (9) Asthma Current Visit: No Status: Chronic Qualifiers: Asthma severity: mild intermittent Asthma complication type: uncomplicated Qualified Code(s): J45.20 - Mild intermittent asthma, uncomplicated - AMA Did Patient Leave Against Medical Advice: No
[2016-08-17] MEDS: amLODIPine BESYLATE 10 MG TABLET (FP) PO SCH (09:04)
[2016-08-17] MEDS: ASPIRIN 81 MG CHEWABLE TABLETS PO SCH (09:04)
[2016-08-17] MEDS: PANTOPRAZOLE 40 MG TABLET (FP) PO SCH (09:04)
[2016-08-17 09:22] VITALS: BP 147/98; PULSE 95; TEMP 98.1
== END 2016-08-17 09:16 | disposition home or self-care (01) | DRG 897 ==
LOC: YASAS 12:00 → Y3N 13:14
PROVIDERS: ADMIT Internal Medicine; ATTEND Internal Medicine
PROC: HZ2ZZZZ Detoxification Services for Substance Abuse Treatment (ICD-10-PCS; principal; 2016-08-17)
DX: F11.23 Opioid dependence with withdrawal (principal); F32.9 Major depressive disorder, single episode, unspecified; F19.24 Other psychoactive substance dependence with psychoactive substance-induced mood disorder; J45.20 Mild intermittent asthma, uncomplicated; I10 Essential (primary) hypertension; K21.9 Gastro-esophageal reflux disease without esophagitis; B18.2 Chronic viral hepatitis C; H50.89 Other specified strabismus; H40.9 Unspecified glaucoma
CPT/HCPCS: 36415; 80053; 81003; 85027; 86593; 87522; 93005; 93010; 94640

== ENCOUNTER 2018-03-20 10:33 | Inpatient (IN) | payer OTHER ==
[2018-03-20 11:41] VITALS: BMI 25.8
--- NOTE | 2018-03-20 13:44 | HP ---
CIWA Score Nausea/Vomitin Muscle Tremors: 2 Anxiety: 2 Agitation: 2 Paroxysmal Sweats: 1-Minimal Palms Moist Orientation: 0-Oriented Tacttile Disturbances: 1-Very Mild Itch/Numbness Auditory Disturbances: 1-Very Mild Visual Disturbances: 0-None Headache: 2-Mild CIWA-Ar Total Score: 13 - Admission Criteria OASAS Guidelines: Admission for Medically Managed Detox: Requires at least one of the followin. CIWA greater than 12 2. Seizures within the past 24 hours 3. Delirium tremens within the past 24 hours 4. Hallucinations within the past 24 hours 5. Acute intervention needed for co occurring medical disorder 6. Acute intervention needed for co occurring psychiatric disorder 7. Severe withdrawal that cannot be handled at a lower level of care (continued vomiting, continued diarrhea, abnormal vital signs) requiring intravenous medication and/or fluids 8. Patient presents the following: CIWA greater than 12 Admission Criteria Met: Admission criteria met Admission ROS S - HPI Chief Complaint: i need help to stop drinking alcohol,heroin abused,on suboxone maintenance Allergies/Adverse Reactions: Allergies Allergy/AdvReac Type Severity Reaction Status Date / Time fish derived Allergy Severe Swelling Verified 03/20/18 12:44 Iodinated Contrast- Oral and Allergy Severe Difficulty Verified 08/12/16 13:16 IV Dye Breathing [Iodinated Contrast Media - IV Dye] penicillin G Allergy Severe Hives Verified 03/20/18 12:44 contrast dye Allergy Severe Difficulty Uncoded 03/20/18 12:44 Breathing History of Present Illness: this 68 years old male with alcohol dependence,heroin abused,on suboxone maintenance 8mg/2 mg in am,12 mg/3 mg in pm copd positive ppd last detox 08/12/16 to 08/17/16 blindness of left eye since 2011 s/p cataract and lens implant longest sobriety 4 years callus left foot chronic hepatitis b , Exam Limitations: No Limitations - Ebola screening Have you traveled outside of the country in the last 21 days: No Have you had contact with anyone from an Ebola affected area: No Have you been sick,other than usual withdrawal symptoms: No Do you have a fever: No - Review of Systems Constitutional: Loss of Appetite, Malaise, Night Sweats, Changes in sleep, Weakness EENT: reports: Nose Congestion Respiratory: reports: Other (copd) Cardiac: reports: No Symptoms Reported GI: reports: Nausea, Vomiting, Abdominal cramping : reports: No Symptoms Reported Musculoskeletal: reports: Back Pain, Joint Pain, Muscle Pain Integumentary: reports: Dryness Neuro: reports: Headache, Tremors Endocrine: reports: No Symptoms Reported Hematology: reports: No Symptoms Reported Psychiatric: reports: No Sypmtoms Reported, Judgement Intact, Mood/Affect Appropiate, Orientated x3 Other Systems: Reviewed and Negative Patient History - Patient Medical History Hx Anemia: No Hx Asthma: No Hx Chronic Obstructive Pulmonary Disease (COPD): Yes (on albuterol inhaler and advair and nebulizer) Hx Cancer: No Hx Cardiac Disorders: No Hx Congestive Heart Failure: No Hx Hypertension: Yes (ON MEDS) Hx Hypercholesterolemia: No Hx Pacemaker: No HX Cerebrovascular Accident: No Hx Seizures: No Hx Diabetes: No Hx Gastrointestinal Disorders: No Hx Liver Disease: Yes (HEP B ) Hx Genitourinary Disorders: No Hx Sexually Transmitted Disorders: Yes (SYPHILIS years ago - treated) Hx Renal Disease (ESRD): Yes (HX KIDNEY STONES) Hx Thyroid Disease: No Hx Human Immunodeficiency Virus (HIV): No (LAST TESTED 03/2013;NEGATIVE HX) Hx Hepatitis C: No Hx Depression: Yes (NO CURRENT MEDICATION) Hx Suicide Attempt: No (DENIES) Hx Bipolar Disorder: No Hx Schizophrenia: No Other Medical History: no suicidal,no homicidal - Patient Surgical History Past Surgical History: Yes Hx Neurologic Surgery: No Hx Cataract Extraction: Yes (LEFT LENS TRANSPLANT IN 2011) Hx Cardiac Surgery: No Hx Lung Surgery: No Hx Breast Surgery: No Hx Breast Biopsy: No Hx Abdominal Surgery: No Hx Appendectomy: No Hx Cholecystectomy: No Hx Genitourinary Surgery: No Hx Section: No Hx Orthopedic Surgery: No Other Surgical History: lens implant, left eye in 2011 Anesthesia Reaction: No - PPD History Previous Implant?: Yes Documented Results: Positive w/o proof Results: CXR TO BE DONE PPD to be Administered?: No - Smoking Cessation Smoking history: Current every day smoker Have you smoked in the past 12 months: Yes Aproximately how many cigarettes per day: 5 Cigars Per Day: 0 Hx Chewing Tobacco Use: No Initiated information on smoking cessation: Yes 'Breaking Loose' booklet given: 03/20/18 - Substance & Tx. History Hx Alcohol Use: Yes Hx Substance Use: Yes Substance Use Type: Alcohol, Heroin Hx Substance Use Treatment: Yes (08/12/16 to 08/17/16) - Substances Abused Heroin Route: Injection Frequency: Daily Amount used: 3 bags Age of first use: 12 Date of Last Use: 03/19/18 Alcohol Route: Oral Frequency: Daily Amount used: 1-1.5 pints of vodka Age of first use: 11 Date of Last Use: 03/20/18 Family Disease History - Family Disease History Family Disease History: Respiratory: Father (HTN;ASTHMA-), Other: Father , Mother (HTN-), Brother (, liver, etoh), Sister (, liver, etoh) Admission Physical Exam [facility] - Vital Signs Vital Signs: Vital Signs - 24 hr 03/20/18 11:37 Temperature 97.7 F Pulse Rate 108 H Respiratory 18 Rate Blood Pressure 152/82 - Physical General Appearance: Yes: Moderate Distress, Tremorous, Irritable, Sweating, Anxious HEENTM: Yes: Normal ENT Inspection, GEE, Pharynx Normal Respiratory: Yes: Within Normal Limits, Lungs Clear, Normal Breath Sounds Neck: Yes: Within Normal Limits, Supple, Trachea in good position Breast: Yes: Within Normal Limits Cardiology: Yes: Within Normal Limits, Regular Rhythm, Regular Rate, S1, S2 Abdominal: Yes: Normal Bowel Sounds, Non Tender, Flat, Soft, Pulsatile Mass Genitourinary: Yes: Within Normal Limits Back: Yes: Normal Inspection, Muscle Spasm Musculoskeletal: Yes: full range of Motion, Back pain, Muscle Pain Extremities: Yes: Normal Range of Motion, Tremors, Other (callus left foot) Neurological: Yes: station baggage agent II-XII NML intact, Fully Oriented, Alert, Motor Strength 5/5 Integumentary: Yes: Dry Lymphatic: Yes: Within Normal Limits - Diagnostic (1) Blindness of left eye Current Visit: Yes Status: Acute (2) Alcohol dependence with uncomplicated withdrawal Current Visit: No Status: Chronic (3) Nicotine dependence Current Visit: No Status: Chronic Qualifiers: Nicotine product type: cigarettes Substance use status: uncomplicated Qualified Code(s): F17.210 - Nicotine dependence, cigarettes, uncomplicated (4) COPD (chronic obstructive pulmonary disease) Current Visit: Yes Status: Acute (5) Encounter for monitoring Suboxone maintenance therapy Current Visit: Yes Status: Acute (6) Positive PPD Current Visit: Yes Status: Acute (7) Chronic hepatitis B Current Visit: Yes Status: Acute Cleared for Admission [facility] - Detox or Rehab [facility] Level of Care: Medically Managed Detox Regimen/Protocol: Librium [facility] Breath Alcohol Content Breath Alcohol Content: 0.055 Urine Drug Screen - Results Drug Screen Negative: No Urine Drug Screen Results: OPI-Opiates, BAR-Barbiturates, OXY-Oxycodone, FEN- Fentanyl, BUP-Suboxone
[2018-03-20] MEDS ORDERED: guaiFENesin/D-METHORPHAN HB 10 ML UNIT-DOSE CUPS PO PRN (14:01)
[2018-03-20] MEDS ORDERED: MAG HYDROX/AL HYDROX/SIMETH 30 ML UNIT-DOSE CUP PO PRN (14:01)
[2018-03-20] MEDS ORDERED: ACETAMINOPHEN 325 MG TABLET (FP) PO PRN (14:01)
[2018-03-20] MEDS ORDERED: LOPERAMIDE HCL 2 MG CAPSULE PO PRN (14:01)
[2018-03-20] MEDS ORDERED: hydrOXYzine PAMOATE 25 MG CAPSULE (FP) PO PRN (14:01)
[2018-03-20] MEDS ORDERED: chlordiazePOXIDE HCL 25 MG CAPSULE PO PRN (14:01)
[2018-03-20] MEDS ORDERED: MENTHOL/PHENOL 1 EACH UD MM PRN (14:01)
[2018-03-20] MEDS ORDERED: MAGNESIUM HYDROX 2400MG/30ML ORAL SUSPENSION 30 ML CUP PO PRN (14:01)
[2018-03-20] MEDS ORDERED: NICOTINE POLACRILEX 2 MG GUM BUC PRN (14:01)
[2018-03-20] MEDS ORDERED: P-EPHED 60MG/TRIPROLIDI 2.5MG TABLET PO PRN (14:01)
[2018-03-20] MEDS ORDERED: IBUPROFEN 400 MG TABLET (FP) PO PRN (14:01)
[2018-03-20] MEDS ORDERED: MAGNESIUM CITRATE 300 ML BOTTLE PO PRN (14:01)
[2018-03-20] MEDS ORDERED: BISACODYL 5 MG TABLET.DR (FP) PO PRN (14:03)
[2018-03-20] MEDS ORDERED: ALBUTEROL SO4 2.5/IPRATROPIUM 0.5 INH SOL 3 ML VIAL.NEB. NEB PRN (14:07)
[2018-03-20] MEDS: chlordiazePOXIDE HCL 25 MG CAPSULE PO SCH ×2 (17:41→22:14)
[2018-03-20] MEDS: ALBUTEROL SO4 8 GM HFA INHALER IH PRN (17:42)
[2018-03-20] MEDS ORDERED: THIAMINE HCL 100 MG TABLET (FP) PO SCH (22:00)
[2018-03-20] MEDS ORDERED: MELATONIN 5 MG TABLETS PO PRN (22:00)
[2018-03-20] MEDS ORDERED: ATORVASTATIN CA 20 MG TABLET (FP) PO SCH (22:00)
[2018-03-20] MEDS: BUDESONIDE/FORMETEROL FUMARATE 160/4.5 mcg INHALER IH SCH (22:13)
[2018-03-21] MEDS: chlordiazePOXIDE HCL 25 MG CAPSULE PO SCH ×2 (05:41→10:41)
[2018-03-21 06:45] VITALS: BP 134/82; PULSE 92; TEMP 97
[2018-03-21] MEDS: ALBUTEROL SO4 8 GM HFA INHALER IH PRN (08:08)
[2018-03-21] MEDS ORDERED: PRENATAL VITAMINS W/ FOLIC ACID TABLET (FP) PO SCH (10:00)
[2018-03-21] MEDS ORDERED: NICOTINE 21 MG/24 HOURS TOPICAL PATCH TD SCH (10:00)
[2018-03-21] MEDS ORDERED: ASPIRIN 81 MG CHEWABLE TABLETS PO SCH (10:00)
[2018-03-21] MEDS ORDERED: BUPRENORPHINE/NALOXONE 8 MG/2 MG FILM PACKET SL SCH (10:00)
[2018-03-21] MEDS ORDERED: amLODIPine BESYLATE 10 MG TABLET (FP) PO SCH (10:00)
[2018-03-21] MEDS ORDERED: LISINOPRIL 5 MG TABLET (FP) PO SCH (10:00)
[2018-03-21 10:19] LABS: HEMATOCRIT 44.4 % (35.4-49); HEMOGLOBIN 14.1 GM/dL (11.7-16.9); MCH 29.4 pg (25.7-33.7); MCHC 31.7 g/dl (32.0-35.9); MEAN CELL VOLUME 92.6 fl (80-96); MEAN PLT VOLUME 9.5 fl (7.5-11.1); PLATELET COUNT 224 K/MM3 (134-434); RDW 14.4 % (11.9-15.9); WHITE BLOOD COUNT 5.2 K/mm3 (4.0-10.0)
[2018-03-21] MEDS: BUDESONIDE/FORMETEROL FUMARATE 160/4.5 mcg INHALER IH SCH (10:41)
[2018-03-21 10:51] LABS: ALBUMIN 3.4 g/dl (3.4-5.0); ALK PHOS 77 U/L (45-117); ANION GAP 7 MMOL/L (8-16); BILIRUBIN,TOTAL 0.3 mg/dL (0.2-1); BLOOD UREA NITROGEN 13 mg/dL (7-18); CALCIUM 8.6 mg/dL (8.5-10.1); CHLORIDE 105 mmol/L (98-107); CO2 30 mmol/L (21-32); CREATININE 1.1 mg/dL (0.55-1.3); GLUCOSE,RANDOM 90 mg/dL (74-106); POTASSIUM 4.5 mmol/L (3.5-5.1); SGOT/AST 96 U/L (15-37); SGPT/ALT 95 U/L (13-61); SODIUM 142 mmol/L (136-145); TOT PROT 7.4 g/dl (6.4-8.2)
--- NOTE | 2018-03-21 11:56 | EKG ---
Test Reason : Blood Pressure : / mmHG Vent. Rate : 098 BPM Atrial Rate : 098 BPM P-R Int : 138 ms QRS Dur : 082 ms QT Int : 336 ms P-R-T Axes : 064 052 050 degrees QTc Int : 428 ms NORMAL SINUS RHYTHM NORMAL ECG WHEN COMPARED WITH ECG OF 12-AUG-2016 13:40, NO SIGNIFICANT CHANGE WAS FOUND Confirmed by KAVITA ROGERS MD ([id number]) on 03/21/2018 11:55:47 AM Referred By: Confirmed By:KAVITA ROGERS MD
[2018-03-21] MEDS ORDERED: FLU VACCINE QUAD 60 MCG/0.5 ML (MDV 18-19) IM ONE (12:00)
--- NOTE | 2018-03-21 12:37 | DS ---
[facility] Detox Discharge Summary Admission Date: 03/20/18 - History Present History: Alcohol Dependence, MMTP Additional Comments: Patient decided to leave A and refused to speak with staff. Patient instructed to call 911 if feeling sick or any withdrawal symptoms and to see his PCP within 3 days. Pertinent Past History: Alcohol dependence Blindness left eye Nicotine dependence COPD Suboxone maintenance PPD Positive Hepatitis B - Physical Exam Results Vital Signs: Vital Signs Temperature 97 F L 03/21/18 06:44 Pulse Rate 92 H 03/21/18 06:44 Respiratory Rate 18 03/21/18 06:44 Blood Pressure 134/82 03/21/18 06:44 O2 Sat by Pulse Oximetry (%) Pertinent Admission Physical Exam Findings: Withdrawal symptoms Laboratory Tests 03/21/18 03/21/18 03/21/18 05:50 05:50 05:50 WBC 5.2 RBC 4.80 Hgb 14.1 Hct 44.4 MCV 92.6 MCH 29.4 MCHC 31.7 L RDW 14.4 Plt Count 224 D MPV 9.5 Sodium 142 Potassium 4.5 Chloride 105 Carbon Dioxide 30 Anion Gap 7 L BUN 13 Creatinine 1.1 Creat Clearance w eGFR > 60 Random Glucose 90 Calcium 8.6 Total Bilirubin 0.3 AST 96 H ALT 95 H Alkaline Phosphatase 77 Total Protein 7.4 Albumin 3.4 RPR Titer Nonreactive Labs reviewed - Medication Discharge Medications: Ambulatory Orders Albuterol Sulfate Inhaler - [Ventolin HFA Inhaler -] 2 inh PO Q4H PRN #1 inh 03/22 Amlodipine Besylate [Norvasc -] 10 mg PO DAILY #30 tablet 08/17/16 Aspirin [ASA -] 81 mg PO DAILY #30 tab.chew 08/17/16 Atorvastatin Ca [Lipitor] 20 mg PO HS #30 tablet 08/17/16 Brimonidine Tartrate [Alphagan 0.2% -] 1 drop OP BID 30 Days drops 08/17/16 Salmeterol/Fluticasone [Advair 500Mcg/50Mcg -] 1 inh PO BID #1 inh 08/17/16 Acamprosate Calcium [Campral -] 666 mg PO TID 03/20/18 Albuterol Sulfate 0.5% [Ventolin 0.5% Nebulizing Soln. -] 0.5 ml IH Q4H PRN Bisacodyl [Dulcolax] 5 mg PO DAILY PRN 03/20/18 Buprenorphine/Naloxone [Suboxone 8Mg/2Mg Sl Film -] 2.5 each SL DAILY 03/20/18 Lisinopril 5 mg PO DAILY 03/20/18 Multivitamin [Multiple Vitamins] 1 tab PO DAILY 03/20/18 Tenofovir Alafenamide Fumarate [Vemlidy] 25 mg PO DAILY 03/20/18 Umeclidinium [place] [Incruse Ellipta] 1 unit PO DAILY 03/20/18 Varenicline Tartrate [Chantix] 1 mg PO ASDIR 03/20/18 - Diagnosis (1) Blindness of left eye Current Visit: Yes Status: Chronic (2) COPD (chronic obstructive pulmonary disease) Current Visit: Yes Status: Chronic (3) Chronic hepatitis B Current Visit: Yes Status: Chronic (4) Encounter for monitoring Suboxone maintenance therapy Current Visit: Yes Status: Acute (5) Positive PPD Current Visit: Yes Status: Chronic (6) Alcohol dependence with uncomplicated withdrawal Current Visit: Yes Status: Acute (7) Nicotine dependence Current Visit: Yes Status: Chronic Qualifiers: Nicotine product type: cigarettes Substance use status: uncomplicated Qualified Code(s): F17.210 - Nicotine dependence, cigarettes, uncomplicated - AMA Did Patient Leave Against Medical Advice: Yes (Instructed to call 911 if feeling sick or withdrawal symptoms)
[2018-03-21] MEDS ORDERED: chlordiazePOXIDE HCL 25 MG CAPSULE PO SCH (17:00)
[2018-03-21] MEDS ORDERED: BUPRENORPHINE HCL/NALOXONE 12 MG-3 MG SL FILM PACKET SL SCH (22:00)
[2018-03-22] MEDS ORDERED: chlordiazePOXIDE 5 MG CAPSULE PO SCH (17:00)
[2018-03-23] MEDS ORDERED: chlordiazePOXIDE HCL 10 MG CAPSULE PO SCH (17:00)
== END 2018-03-21 12:44 | disposition left against medical advice (07) | DRG 894 ==
LOC: YASAS 10:33 → Y3N 13:59
PROC: HZ2ZZZZ Detoxification Services for Substance Abuse Treatment (ICD-10-PCS; principal; 2018-03-20)
DX: F10.230 Alcohol dependence with withdrawal, uncomplicated (principal); B18.1 Chronic viral hepatitis B without delta-agent; F17.210 Nicotine dependence, cigarettes, uncomplicated; J44.9 Chronic obstructive pulmonary disease, unspecified; H54.62 Unqualified visual loss, left eye, normal vision right eye; R76.11 Nonspecific reaction to tuberculin skin test without active tuberculosis; Z51.81 Encounter for therapeutic drug level monitoring; Z88.0 Allergy status to penicillin; Z91.013 Allergy to seafood; Z91.041 Radiographic dye allergy status
CPT/HCPCS: 36415; 80053; 85027; 86593; 93005; 93010; 94640